=== PATIENT | male | born 1950 | race Caucasian/White ===

== ENCOUNTER 2017-09-07 09:33 | Emergency (ER) | payer MEDICARE ==
[2017-09-07 09:49] VITALS: BP 153/95
--- NOTE | 2017-09-07 10:08 | ER Document Report ---
ED Medical Screen (RME) - General Chief Complaint: Leg Pain Stated Complaint: RIGHT LEG PAIN Time Seen by Provider: 09/07/17 09:58 Mode of Arrival: Ambulatory Information source: Patient Notes: Patient is a 67 year old male with a history of DVT presents to the emergency department complaining of worsening right leg pain onset Thursday. Patient states the pain is exacerbated with pressure. Patient states he took a trip to [place] on Thursday and took necessary breaks to ambulate every 1hr30 mins. Patient states he was previously prescribed Xarelto but did not finish taking the medication. Limited exam performed due to clothing. No palpable cords or tenderness. Negative Renae's sign. NVID. I have greeted and performed a rapid initial assessment of this patient. A comprehensive ED assessment and evaluation of the patient, analysis of test results and completion of the medical decision making process will be conducted by additional ED providers. TRAVEL OUTSIDE OF THE [place] IN LAST 30 DAYS: No - Related Data Allergies/Adverse Reactions: No Known Allergies Allergy (Verified 09/07/17 09:38) Home Medications: Current Home Medications Ledipasvir/Sofosbuvir [Harvoni 90-400 mg Tablet] 1 tab PO DAILY 09/07/17 [ History] Past Medical History - Past Medical History Cardiac Medical History: Reports: Hx DVT Pulmonary Medical History: Reports: Hx COPD Physical Exam - Vital signs Vitals: Temp Pulse Resp BP Pulse Ox 98.1 F 96 18 153/95 H 94 09/07/17 09:49 09/07/17 09:49 09/07/17 09:49 09/07/17 09:49 09/07/17 09:49 Course - Vital Signs Vital signs: Temp Pulse Resp BP Pulse Ox 98.1 F 96 18 153/95 H 94 09/07/17 09:49 09/07/17 09:49 09/07/17 09:49 09/07/17 09:49 09/07/17 09:49
--- NOTE | 2017-09-07 10:29 | ER Document Report ---
ED Extremity Problem, Lower - General Mode of Arrival: Ambulatory Information source: Patient TRAVEL OUTSIDE OF THE [place] IN LAST 30 DAYS: No - General Chief Complaint: Leg Pain Stated Complaint: RIGHT LEG PAIN Time Seen by Provider: 09/07/17 09:58 Notes: Patient is a 67 year old male with a history of DVT presents to the emergency department complaining of worsening right leg pain onset Thursday. Patient states the pain is exacerbated with pressure but is not worsened with ambulation. Patient states he took a trip to [place] on Thursday and took necessary breaks to ambulate every 1hr30 mins. Patient states he was previously prescribed Xarelto but did not finish taking the medication. Patient states that he worked on an unusual piece of equipment but denies any injury. Patient also denies any chest pain, shortness of breath, fevers, swelling or redness. (SHEA MELGAR) - Related Data Allergies/Adverse Reactions: No Known Allergies Allergy (Verified 09/07/17 09:38) Home Medications: Current Home Medications Ledipasvir/Sofosbuvir [Harvoni 90-400 mg Tablet] 1 tab PO DAILY 09/07/17 [ History] Past Medical History - Social History Smoking Status: Current Every Day Smoker Cigarette use (# per day): Yes - greater than a pack a day Frequency of alcohol use: Occasional Drug Abuse: Marijuana Family History: Reviewed & Not Pertinent Patient has suicidal ideation: No Patient has homicidal ideation: No - Past Medical History Cardiac Medical History: Reports: Hx DVT Pulmonary Medical History: Reports: Hx COPD Review of Systems - Review of Systems Constitutional: No symptoms reported EENT: No symptoms reported Cardiovascular: No symptoms reported Respiratory: No symptoms reported Gastrointestinal: No symptoms reported Genitourinary: No symptoms reported Male Genitourinary: No symptoms reported Musculoskeletal: See HPI Skin: No symptoms reported Hematologic/Lymphatic: No symptoms reported Neurological/Psychological: No symptoms reported -: Yes All other systems reviewed and negative Physical Exam - Vital signs Vitals: Temp Pulse Resp BP Pulse Ox 98.1 F 96 18 153/95 H 94 09/07/17 09:49 09/07/17 09:49 09/07/17 09:49 09/07/17 09:49 09/07/17 09:49 - Notes Notes: GENERAL: Alert, interacts well. No acute distress. HEAD: Normocephalic, atraumatic. NECK: Full range of motion. Supple. Trachea midline. LUNGS: Coarse breath sounds bilaterally. EXTREMITIES: Moves all 4 extremities spontaneously. No edema, weak femoral pulse bilaterally. Capilarlly refill <2 seconds when sitting. Negative Holmans sign bilaterally. Weak doppler DP bilaterally, slightly better PT in the BLE. No cyanosis. No palpable cords or tenderness. NEUROLOGICAL: Alert and oriented x3. Normal speech. Normal motor and sensation. PSYCH: Normal affect, normal mood. SKIN: Warm, dry, normal turgor. No rashes or lesions noted. No BLE coolness or cyanosis. (SHEA MELGAR) Course - Re-evaluation Re-evalutation: 09/07/17 11:11 Ultrasound showed a DVT in the right popliteal vein. This appears to be his second known DVT. Patient still refuses any anticoagulants other than aspirin. He will take an adult aspirin daily. We will give him one prior to discharge. He understands the risk of thromboembolic disorders and pulmonary embolism which he can include permanent disability or . I did recommend to him and repeat ultrasound to see if there is further propagation in 1 week or to return if he develops signs or symptoms of pulmonary embolism. He voices understanding. Further, I instructed him he should get follow-up with his PCP to determine underlying cause of this. He voices this as well including common causes to include malignancy, hypercoagulable states. (ALLISON KRISHNAN) - Vital Signs Vital signs: Temp Pulse Resp BP Pulse Ox 98.1 F 96 18 153/95 H 94 09/07/17 09:49 09/07/17 09:49 09/07/17 09:49 09/07/17 09:49 09/07/17 09:49 Discharge - Discharge Clinical Impression: Deep vein thrombosis (DVT) Condition: Good Disposition: HOME, SELF-CARE Additional Instructions: You have a confirmed deep venous thrombosis of the right popliteal vein. Since she refused anticoagulation, understand there is significant risk including pulmonary embolism which can lead to permanent disability, , chronic right leg problems. I would recommend you return in a week or have your primary care physician evaluate you for further hypercoagulable states, causes of DVT since this is recurrent. I recommend smoking cessation as well as repeat ultrasound in approximately 1 week to see if this is continuing to propagate/worsen. Please return if you change your mind about further blood thinners. We would usually consider something such as Eliquis for such an illness. Take an adult aspirin 325 mg daily. As her pulses appear weak and have poor circulation, I again would consider having your primary care physician evaluate you further for both coronary artery disease and peripheral artery disease. Forms: Smoking Cessation Education Scribe Attestation: 09/07/17 11:15 I personally performed the services provided in the documentation, reviewed and edited the documentation which was dictated to the scribe in my presence. It accurately records my words and actions. JESUS (ALLISON KRISHNAN) Duran[employer] Documentation - Scribe Written by Carolyn:: Carolyn Flores, 09/07/2017 10:29 acting as scribe for :: Ryan
[2017-09-07] MEDS ORDERED: ASPIRIN 325 MG TABLET PO ONE (11:16)
[2017-09-07] MEDS ORDERED: ASPIRIN 81 MG TABLET, CHEWABLE ONE (11:27)
--- NOTE | 2017-09-07 12:23 | XCELERA REPORT ---
[address] [address] Lower Extremity Venous Evaluation Name: ELO SHEIKH Age: 67 yrs Gender: Male : 1950 Patient Status: Preadmit Patient Location: ER Study Date: 09/07/2017 10:40 AM Procedure: Color flow and duplex imaging of the veins of the right lower extremity as well as the left Common Femoral vein. Reason For Study: RLE Calf pain, Hx of LLE DVT Ordering Physician: ALLISON KRISHNAN Performed By: Lia Castañeda Right Sided Venous Evaluation Abnormal vessel filling , no compression or Colour flow in the Popliteal vein. Left Sided Venous Evaluation The left common femoral vein is fully compressible. Spontaneous and phasic flow is present in the left common femoral vein. Interpretation Summary Positive for DVT in the Right Popliteal vein. : ALLISON KRISHNAN [place]
== END 2017-09-07 11:32 | disposition home or self-care (01) ==
LOC: ER 09:33
DX: I82.431 Acute embolism and thrombosis of right popliteal vein (principal); M79.604 Pain in right leg; F17.210 Nicotine dependence, cigarettes, uncomplicated; J44.9 Chronic obstructive pulmonary disease, unspecified; Z86.718 Personal history of other venous thrombosis and embolism
CPT/HCPCS: 99283; 93971 ×2; A9270

== ENCOUNTER 2019-07-22 10:05 | Observation (INO) | payer MEDICARE ==
[2019-07-22] MEDS ORDERED: ASPIRIN 81 MG TABLET, CHEWABLE PO ONE (10:10)
[2019-07-22] MEDS ORDERED: DILTIAZEM HCL INJ 25 MG/5 ML VIAL IV ONE (10:25)
[2019-07-22] MEDS ORDERED: DILTIAZEM HCL/D5W 125 MG/125 ML RTUINJ IV PRN (10:25)
[2019-07-22 10:28] LABS: ABSOLUTE BASOPHILS # (AUTO) 0.1 10^3/uL (0.0-0.2); ABSOLUTE LYMPHOCYTES (AUTO) 1.1 10^3/uL (0.5-4.7); ABSOLUTE MONOCYTES (AUTO) 1.2 10^3/uL (0.1-1.4); ABSOLUTE NEUT (AUTO) 10.3 10^3/uL (1.7-8.2); BASOPHILS % (AUTO) 0.6 % (0-2); EOSINOPHILS % (AUTO) 0.1 % (0-6); HEMOGLOBIN 16.4 g/dL (13.5-17.0); LYMPHOCYTES % (AUTO) 8.6 % (13-45); MEAN CORPUSCULAR HEMOGLOBIN 35.7 pg (27.0-33.4); MEAN CORPUSCULAR HGB CONC 34.8 g/dL (32.0-36.0); MEAN CORPUSCULAR VOLUME 102 fl (80-97); MONOCYTES % (AUTO) 9.1 % (3-13); PLATELET COUNT 149 10^3/uL (150-450); RED BLOOD COUNT 4.59 10^6/uL (4.35-5.55); RED CELL DISTRIBUTION WIDTH 13.1 % (11.5-14.0); SEGMENTED NEUTROPHILS % (AUTO) 81.6 % (42-78); TOTAL CELLS COUNTED % (AUTO) 100 %; WHITE BLOOD COUNT 12.7 10^3/uL (4.0-10.5)
--- NOTE | 2019-07-22 10:28 | ER Document Report ---
ED General - General Chief Complaint: Chest Pain Stated Complaint: CHEST PAIN Time Seen by Provider: 07/22/19 10:24 TRAVEL OUTSIDE OF THE [place] IN LAST 30 DAYS: No - HPI Notes: Patient is a 69-year-old male who presents emergency department for evaluation of chest pain. He states he had some the other evening. It felt like an elephant sitting on his chest. He called EMS, but the pain went away prior to their arrival. He was checked out, deemed stable to stay at home. He states he started having pain again at about 130 this morning. It is substernal, crushing type pain. He rated it a 5 out of 5. He felt dizzy and very nauseated. He could feel his heart racing. He called EMS, was found to be in SVT. Patient was administered Identicard x2, was found to be in rapid atrial fibrillation. H e was then administered 10 mill grams of Cardizem and was sinus mechanism for some time. He presents here to the emergency department for evaluation and is currently in rapid atrial fibrillation. He currently puts his pain at a 1 out of 10. He states is just a slight pressure. - Related Data Allergies/Adverse Reactions: No Known Allergies Allergy (Verified 09/07/17 09:38) Home Medications: LISINOPRIL/HCTZ -unsure of dose, states he only takes it "as needed" Past Medical History - General Information source: Patient - Social History Smoking Status: Current Every Day Smoker Frequency of alcohol use: Heavy Drug Abuse: None Family History: Reviewed & Not Pertinent Patient has suicidal ideation: No Patient has homicidal ideation: No - Past Medical History Cardiac Medical History: Reports: Hx DVT, Hx Hypertension Pulmonary Medical History: Reports: Hx COPD Renal/ Medical History: Denies: Hx Peritoneal Dialysis Review of Systems - Review of Systems Constitutional: No symptoms reported EENT: No symptoms reported Cardiovascular: See HPI Respiratory: No symptoms reported Gastrointestinal: No symptoms reported Genitourinary: No symptoms reported Musculoskeletal: No symptoms reported Skin: No symptoms reported Neurological/Psychological: No symptoms reported Physical Exam - Vital signs Vitals: Pulse Ox 98 07/22/19 10:08 - Notes Notes: Vital signs reviewed, please refer to chart. Head is normocephalic, atraumatic. Pupils equal round, reactive to light. Neck is supple without meningismus. Heart is tachycardic and irregularly irregular. Lungs are clear to auscultation bilaterally. Abdomen is soft, nontender, normoactive bowel sounds throughout. Extremities without cyanosis, clubbing. Posterior calves are nontender. Peripheral pulses are equal. Skin is warm and dry. Patient is awake, alert, neurological exam is nonfocal. Course - Re-evaluation Re-evalutation: 07/22/19 10:29 Patient presents to the emergency department for evaluation. Upon arrival he was found to be initially in SVT. I went to see the patient personally 3 minutes later, he was found to be in rapid atrial fibrillation. His pressure is stable. I believe his chest pain is likely secondary to rate related ischemia. He was already given aspirin. Administered Cardizem 20 mg IV, IV fluids continue. We will place him on a drip, titrate to effect. We will continue to monitor. 07/22/19 14:35 Patient remained stable in atrial flutter throughout the course of the remainder of his stay in the ED here. He denies any chest pain at this time. He is feeling improved. CT angiogram was performed, no pulmonary embolus or other acute finding was identified. Patient was given Lovenox because of his atrial fibrillation. He Shmuel had been prescribed Eliquis in the past, with which he is being noncompliant. I spoke with Dr. Escobar, then Liang Horn, KELVIN, who will admit the patient for further care. - Vital Signs Vital signs: Temp Pulse Resp BP Pulse Ox 98.5 F 159 H 16 107/72 95 07/22/19 10:19 07/22/19 10:19 07/22/19 11:55 07/22/19 11:55 07/22/19 11:55 - Laboratory Result Diagrams: 07/22/19 10:10 07/22/19 10:10 Laboratory results interpreted by me: 07/22/19 07/22/19 10:10 10:10 WBC 12.7 H MCV 102 H MCH 35.7 H Plt Count 149 L Lymph % (Auto) 8.6 L Absolute Neuts (auto) 10.3 H Seg Neutrophils % 81.6 H Sodium 129.1 L Chloride 96 L Calcium 10.9 H Total Bilirubin 1.5 H Creatine Kinase 41 L - Diagnostic Test Radiology reviewed: Reports reviewed Radiology results interpreted by me: 07/22/19 14:38 Chest/Abdomen CTA 07/22/19 12:27 IMPRESSION: 1. Negative examination for pulmonary embolism. 2. Emphysema and bronchial wall thickening. 3. Small pericardial effusion. - EKG Interpretation by Me Additional EKG results interpreted by me: 07/22/19 14:41 Initial EKG revealed a supraventricular tachycardia with a rate of 160 bpm. Normal axis. Nonspecific ST changes, no acute changes concerning for ischemia or infarction. Repeat EKG performed under 10 minutes later showed atrial fibrillation with a rate of [address] changes. He had another EKG which showed SVT as well. Discharge - Discharge Clinical Impression: Rapid atrial fibrillation Condition: Stable Disposition: ADMITTED INPATIENT Admitting Provider: Luz (Hospitalist) - Henrique Horn NP Unit Admitted: [facility]
[2019-07-22 10:52] LABS: ALBUMIN 3.6 g/dL (3.5-5.0); ALKALINE PHOSPHATASE 79 U/L (38-126); ANION GAP 8 (5-19); ASPARTATE AMINO TRANSFERASE 30 U/L (17-59); BILIRUBIN,DIRECT 0.4 mg/dL (0.0-0.4); BILIRUBIN,TOTAL 1.5 mg/dL (0.2-1.3); BLOOD UREA NITROGEN 12 mg/dL (7-20); CALCIUM 10.9 mg/dL (8.4-10.2); CARBON DIOXIDE 25 mmol/L (22-30); CHLORIDE 96 mmol/L (98-107); CREATINE KINASE 41 U/L (55-170); GLUCOSE 83 mg/dL (75-110); POTASSIUM 4.8 mmol/L (3.6-5.0)
[2019-07-22 11:16] LABS: CREATINE KINASE MB 0.74 ng/mL (<4.55)
[2019-07-22 11:17] LABS: TROPONIN I < 0.012 ng/mL
[2019-07-22 12:47] LABS: INTERNATIONAL RATION (INR) 1.19; PROTHROMBIN TIME 15.2 SEC (11.4-15.4)
[2019-07-22 12:48] LABS: PARTIAL THROMBOPLASTIN TIME 28.6 SEC (23.5-35.8)
[2019-07-22] MEDS ORDERED: ENOXAPARIN SODIUM INJ 80 MG/0.8 ML DISP.SYRIN SUBCUT ONE (13:34)
--- NOTE | 2019-07-22 14:11 | RADIOLOGY REPORT (SQ) ---
EXAM DESCRIPTION: CTA CHEST COMPLETED DATE/TIME: 07/22/2019 1:55 pm REASON FOR STUDY: eval for PE COMPARISON: 12/09/2010 TECHNIQUE: CT scan of the chest performed using helical scanning technique with dynamic intravenous contrast injection. Images reviewed with lung, soft tissue and bone windows. Reconstructed coronal and sagittal MPR images reviewed. Additional 3 dimensional post-processing performed to develop Maximal Intensity Projection images (ND P). All images stored on PACS. All CT scanners at this facility use dose modulation, iterative reconstruction, and/or weight based d osing when appropriate to reduce radiation dose to as low as reasonably achievable (ALARA). [facility]: Dose Right [facility]: CareDose [facility]: Dose Right [facility]: Teradose 4D [facility]: Smart TweetPhoto CONTRAST TYPE AND DOSE: 53 mL Omnipaque 350 Contrast bolus optimized for the pulmonary arteries. Not diagnostic for the aorta. RENAL FUNCTION: GFR > 60. RADIATION DOSE: 572 mGy cm LIMITATIONS: None. FINDINGS: LUNGS AND PLEURA: Mild centrilobular emphysema. Diffuse bilateral bronchial wall thickeni ng. No masses, infiltrates, or pneumothorax. No pleural effusions or pleural calcifications. AORTA AND GREAT VESSELS: No aneurysm. Contrast bolus not optimized for the aorta. HEART: Small pericardial effusion. Left coronary artery calcifications. PULMONARY ARTERIES: No emboli visualized in the main pulmonary arteries or the segmental branches. HILAR AND MEDIASTINAL STRUCTURES: No identified masses or abnormal nodes. HARDWARE: None in the chest. UPPER ABDOMEN: No significant findings. Limited exam. THYROID AND OTHER SOFT TISSUES: No masses. No adenopathy. BONES: No acute or significant finding. 3D MIPS: Confirm above findings. OTHER: No other significant finding. IMPRESSION: 1. Negative examination for pulmonary embolism. 2. Emphysema and bronchial wall thickening. 3. Small pericardial effusion. COMMENT: Quality ID # [id number]: Final reports with documentation of one or more dose reduction techniques (e.g., Automated exposure control, adjustment of the mA and/or kV according to patient size, use of iterative reconstruction technique) TECHNICAL DOCUMENTATION: JOB ID: [id number] [employer]- All Rights Reserved Reading location - IP/workstation name: [email or web address]
[2019-07-22] MEDS ORDERED: OXYCODONE-ACETAMINOPHEN 5-325 MG TABLET PO PRN (14:56)
[2019-07-22] MEDS ORDERED: ZOLPIDEM TARTRATE 5 MG TABLET PO PRN (14:56)
[2019-07-22] MEDS ORDERED: ONDANSETRON HCL INJ/PF 4 MG/2 ML SDV IV PRN (14:56)
[2019-07-22] MEDS ORDERED: ACETAMINOPHEN 325 MG TABLET PO PRN (14:56)
[2019-07-22 15:04] LABS: APPEARANCE,URINE CLEAR; BILIRUBIN,URINE NEGATIVE (NEGATIVE); COLOR,URINE YELLOW; GLUCOSE, URINE NEGATIVE (NEGATIVE); KETONES,URINE TRACE mg/dL (NEGATIVE); LEUKOCYTE ESTERASE,URINE NEGATIVE (NEGATIVE); NITRITE,URINE NEGATIVE (NEGATIVE); PROTEIN,URINE NEGATIVE (NEGATIVE); URINE SPECIFIC GRAVITY 1.027; UROBILINOGEN,URINE NEGATIVE mg/dL (<2.0)
--- NOTE | 2019-07-22 15:11 | PDOC H&P ---
History of Present Illness Admission Date/PCP: 07/22/2019 No primary care Patient complains of: Palpitations History of Present Illness: ELO SHEIKH is a 69 year old male Past Medical History Cardiac Medical History: Reports: DVT, Hypertension Pulmonary Medical History: Reports: Chronic Obstructive Pulmonary Disease (COPD) Past Surgical History Past Surgical History: Reports: None Social History Information Source: Patient Lives with: Alone Smoking Status: Current Every Day Smoker Cigarettes Packs Per Day: 40 Frequency of Alcohol Use: Occasional Hx Recreational Drug Use: No Drugs: None Hx Prescription Drug Abuse: No - Advance Directive Resuscitation Status: Full Code Family History Family History: DM Parental Family History Reviewed: Yes Children Family History Reviewed: Yes Sibling(s) Family History Reviewed.: Yes Medication/Allergy Home Medications: Ledipasvir/Sofosbuvir [Harvoni 90-400 mg Tablet] 1 tab PO DAILY 09/07/17 Allergies/Adverse Reactions: No Known Allergies Allergy (Verified 09/07/17 09:38) Review of Systems Constitutional: ABSENT: chills, fever(s), headache(s), weight gain, weight loss Eyes: ABSENT: visual disturbances Ears: ABSENT: hearing changes Cardiovascular: PRESENT: palpitations. ABSENT: chest pain, dyspnea on exertion, edema, orthropnea Respiratory: ABSENT: cough, hemoptysis Gastrointestinal: ABSENT: abdominal pain, constipation, diarrhea, hematemesis, hematochezia, nausea, vomiting Genitourinary: ABSENT: dysuria, hematuria Musculoskeletal: ABSENT: joint swelling Integumentary: ABSENT: rash, wounds Neurological: ABSENT: abnormal gait, abnormal speech, confusion, dizziness, focal weakness, syncope Psychiatric: ABSENT: anxiety, depression, homidical ideation, suicidal ideation Endocrine: ABSENT: cold intolerance, heat intolerance, polydipsia, polyuria Hematologic/Lymphatic: ABSENT: easy bleeding, easy bruising Physical Exam Vital Signs: Temp Pulse Resp BP Pulse Ox 98.5 F 159 H 16 107/72 95 07/22/19 10:19 07/22/19 10:19 07/22/19 11:55 07/22/19 11:55 07/22/19 11:55 Intake & Output 07/21/19 07/22/19 07/23/19 06:59 06:59 06:59 Intake Total 13 Balance 13 Weight 67.9 kg General appearance: PRESENT: no acute distress, well-developed, well-nourished Head exam: PRESENT: atraumatic, normocephalic Eye exam: PRESENT: conjunctiva pink, EOMI, PERRLA. ABSENT: scleral icterus Ear exam: PRESENT: normal external ear exam Mouth exam: PRESENT: moist, tongue midline Neck exam: ABSENT: carotid bruit, JVD, lymphadenopathy, thyromegaly Respiratory exam: PRESENT: clear to auscultation parminder. ABSENT: rales, rhonchi, wheezes Cardiovascular exam: PRESENT: RRR. ABSENT: diastolic murmur, rubs, systolic murmur Pulses: PRESENT: normal dorsalis pedis pul Vascular exam: PRESENT: normal capillary refill GI/Abdominal exam: PRESENT: normal bowel sounds, soft. ABSENT: distended, guarding, mass, organolmegaly, rebound, tenderness Rectal exam: PRESENT: deferred Extremities exam: PRESENT: full ROM. ABSENT: calf tenderness, clubbing, pedal edema Neurological exam: PRESENT: alert, awake, oriented to person, oriented to place, oriented to time, oriented to situation, CN II-XII grossly intact. ABSENT: motor sensory deficit Psychiatric exam: PRESENT: appropriate affect, normal mood. ABSENT: homicidal ideation, suicidal ideation Skin exam: PRESENT: dry, intact, warm. ABSENT: cyanosis, rash Results Laboratory Results: 07/22/19 10:10 07/22/19 10:10 07/22/19 07/22/19 07/22/19 10:10 10:10 10:10 WBC 12.7 H RBC 4.59 Hgb 16.4 Hct 47.0 MCV 102 H MCH 35.7 H MCHC 34.8 RDW 13.1 Plt Count 149 L Seg Neutrophils % 81.6 H Sodium 129.1 L Potassium 4.8 Chloride 96 L Carbon Dioxide 25 Anion Gap 8 BUN 12 Creatinine 0.91 Est GFR ( Amer) > 60 Glucose 83 Calcium 10.9 H Total Bilirubin 1.5 H AST 30 Alkaline Phosphatase 79 Total Protein 7.0 Albumin 3.6 TSH 1.83 07/22/19 07/22/19 10:10 10:10 Creatine Kinase 41 L CK-MB (CK-2) 0.74 Troponin I < 0.012 Impressions: Chest/Abdomen CTA 07/22/19 12:27 IMPRESSION: 1. Negative examination for pulmonary embolism. 2. Emphysema and bronchial wall thickening. 3. Small pericardial effusion. Assessment and Plan - Diagnosis (1) Rapid atrial fibrillation Is this a current diagnosis for this admission?: Yes Plan: 07/22/2019-rate controlled at this time. Atrial flutter in the 90s. I will transition patient to p.o. Cardizem 30 mg p.o. every 6. Place patient on Eliquis for anticoagulation. Continue to follow make change plan of care as ap propriate (2) Hyponatremia Is this a current diagnosis for this admission?: Yes Plan: -mild. Sodium is 129.1. Normal saline at 125 mL an hour. I suspect is secondary to alcohol abuse. (3) Hypercalcemia Is this a current diagnosis for this admission?: Yes Plan: 07/22/2019-mild most likely concentration related. Will hydrate with normal saline 125 mL an hour repeat calcium in the morning. (4) Leukocytosis Is this a current diagnosis for this admission?: Yes Plan: 07/22/2019-etiology unknown most likely reactional in nature we will continue to follow - Time Time Spent with patient: 35 or more minutes
[2019-07-22] MEDS ORDERED: DILTIAZEM HCL 30 MG TABLET PO ONE (15:30)
[2019-07-22] MEDS ORDERED: DILTIAZEM HCL 30 MG TABLET PO SCH (18:00)
[2019-07-22] MEDS: NORMAL SALINE 1000 ML 1,000 ML IV PRN (18:30)
[2019-07-22] MEDS: APIXABAN 5 MG TABLET PO SCH (18:30)
--- NOTE | 2019-07-22 19:10 | EKG REPORT ---
SEVERITY:- ABNORMAL ECG - ATRIAL FIBRILLATION, V-RATE 96-158 LOW VOLTAGE IN FRONTAL LEADS BORDERLINE R WAVE PROGRESSION, ANTERIOR LEADS : Confirmed by: Carrol Medina MD 22-Jul-2019 19:09:57
--- NOTE | 2019-07-22 19:10 | EKG REPORT ---
SEVERITY:- ABNORMAL ECG - ATRIAL FIBRILLATION, V-RATE 100-165 LOW VOLTAGE IN FRONTAL LEADS BORDERLINE R WAVE PROGRESSION, ANTERIOR LEADS BORDERLINE T ABNORMALITIES, ANT-LAT LEADS : Confirmed by: Carrol Medina MD 22-Jul-2019 19:10:13
--- NOTE | 2019-07-22 19:10 | EKG REPORT ---
SEVERITY:- ABNORMAL ECG - SUPRAVENTRICULAR TACHYCARDIA :MOST LIKELY ATRIAL FLUTTER RIGHT AXIS DEVIATION LOW VOLTAGE IN FRONTAL LEADS : Confirmed by: Carrol Medina MD 22-Jul-2019 19:09:42
--- NOTE | 2019-07-22 19:12 | EKG REPORT ---
SEVERITY:- ABNORMAL ECG - SUPRAVENTRICULAR TACHYCARDIA : MOST LIKELY ATRIALFLUTTER WITH RVR BORDERLINE RIGHT AXIS DEVIATION LOW VOLTAGE IN FRONTAL LEADS BORDERLINE R WAVE PROGRESSION, ANTERIOR LEADS : Confirmed by: Carrol Medina MD 22-Jul-2019 19:10:48
[2019-07-23] MEDS: DILTIAZEM HCL 30 MG TABLET PO SCH ×2 (00:17→05:15)
[2019-07-23 03:10] LABS: HEMATOCRIT 41.1 % (37.9-51.0); HEMOGLOBIN 14.4 g/dL (13.5-17.0); MEAN CORPUSCULAR HEMOGLOBIN 35.5 pg (27.0-33.4); MEAN CORPUSCULAR HGB CONC 35.1 g/dL (32.0-36.0); MEAN CORPUSCULAR VOLUME 101 fl (80-97); PLATELET COUNT 145 10^3/uL (150-450); RED BLOOD COUNT 4.06 10^6/uL (4.35-5.55); WHITE BLOOD COUNT 8.4 10^3/uL (4.0-10.5)
[2019-07-23 03:32] LABS: ANION GAP 7 (5-19); BLOOD UREA NITROGEN 15 mg/dL (7-20); CALCIUM 8.4 mg/dL (8.4-10.2); CARBON DIOXIDE 20 mmol/L (22-30); CHLORIDE 103 mmol/L (98-107); GLUCOSE 89 mg/dL (75-110); PHOSPHORUS 3.1 mg/dL (2.5-4.5); POTASSIUM 4.2 mmol/L (3.6-5.0)
[2019-07-23] MEDS: NORMAL SALINE 1000 ML 1,000 ML IV PRN (05:16)
[2019-07-23] MEDS ORDERED: GUAIFENESIN SYRP 200 MG/10 ML UDC PO PRN (06:56)
[2019-07-23] MEDS ORDERED: NICOTINE 14 MG/24 HR PATCH.TD24 TD ONE (07:00)
[2019-07-23 07:35] VITALS: BP 133/75
--- NOTE | 2019-07-23 09:47 | PDOC DISCHARGE SUMMARY ---
Impression - Admit/DC Date/PCP Admission Date/Primary Care Provider: 07/22/19 15:05 Discharge Date: 07/23/19 - Discharge Diagnosis (1) Rapid atrial fibrillation Is this a current diagnosis for this admission?: Yes (2) Hyponatremia Is this a current diagnosis for this admission?: Yes (3) Hypercalcemia Is this a current diagnosis for this admission?: Yes (4) Leukocytosis Is this a current diagnosis for this admission?: Yes - Additional Information Resuscitation Status: Full Code Discharge Diet: As Tolerated Discharge Activity: Activity As Tolerated Prescriptions: Diltiazem HCl [Cardizem Cd 120 mg Capsule] 120 mg PO DAILY #30 cap.sr.24h Home Medications: Lisinopril/Hydrochlorothiazide [Lisinopril-Hctz 20-25 mg Tab] 0.5 each PO DAILY 07/22/19 Diltiazem HCl [Cardizem Cd 120 mg Capsule] 120 mg PO DAILY #30 cap.sr.24h 07/23/19 History of Present Illiness History of Present Illness: ELO SHEIKH is a 69 year old male who presented to the ER with new onset SVT versus atrial fibrillation with RVR was treated in the field and placed on a Cardizem drip showing an atrial flutter at the time. Hospital Course Hospital Course: Patient admitted to [facility] on Cardizem p.o. after having received Cardizem IV in the ER. Patient converted to a atrial flutter rate controlled. This morning patient is in a normal sinus rhythm in the 80s. I will send patient home continue on Cardizem CD 100 mg p.o. daily patient will follow with primary care this week. Patient's hypercalcemia has resolved his hyponatremia has improved and leukocytosis has resolved secondary to IV fluids. Patient is agrees with plan of care. Patient return to ER with any further bouts of palpitations. Physical Exam Vital Signs: Temp Pulse Resp BP Pulse Ox 98.6 F 81 16 133/75 H 95 07/23/19 07:20 07/23/19 07:20 07/23/19 07:20 07/23/19 07:20 07/23/19 07:20 Intake & Output 07/22/19 07/23/19 07/24/19 06:59 06:59 06:59 Intake Total 1047 Balance 1047 Weight 63.3 kg General appearance: PRESENT: no acute distress, well-developed, well-nourished Head exam: PRESENT: atraumatic, normocephalic Eye exam: PRESENT: conjunctiva pink, EOMI, PERRLA. ABSENT: scleral icterus Ear exam: PRESENT: normal external ear exam Mouth exam: PRESENT: moist, tongue midline Neck exam: ABSENT: carotid bruit, JVD, lymphadenopathy, thyromegaly Respiratory exam: PRESENT: clear to auscultation parminder. ABSENT: rales, rhonchi, wheezes Cardiovascular exam: PRESENT: RRR. ABSENT: diastolic murmur, rubs, systolic murmur Pulses: PRESENT: normal dorsalis pedis pul Vascular exam: PRESENT: normal capillary refill GI/Abdominal exam: PRESENT: normal bowel sounds, soft. ABSENT: distended, guarding, mass, organolmegaly, rebound, tenderness Rectal exam: PRESENT: deferred Extremities exam: PRESENT: full ROM. ABSENT: calf tenderness, clubbing, pedal edema Neurological exam: PRESENT: alert, awake, oriented to person, oriented to place, oriented to time, oriented to situation, CN II-XII grossly intact. ABSENT: motor sensory deficit Psychiatric exam: PRESENT: appropriate affect, normal mood. ABSENT: homicidal ideation, suicidal ideation Skin exam: PRESENT: dry, intact, warm. ABSENT: cyanosis, rash Results Laboratory Results: WBC 8.4 10^3/uL (4.0-10.5) 07/23/19 03:04 RBC 4.06 10^6/uL (4.35-5.55) L 07/23/19 03:04 Hgb 14.4 g/dL (13.5-17.0) 07/23/19 03:04 Hct 41.1 % (37.9-51.0) 07/23/19 03:04 MCV 101 fl (80-97) H 07/23/19 03:04 MCH 35.5 pg (27.0-33.4) H 07/23/19 03:04 MCHC 35.1 g/dL (32.0-36.0) 07/23/19 03:04 RDW 13.0 % (11.5-14.0) 07/23/19 03:04 Plt Count 145 10^3/uL (150-450) L 07/23/19 03:04 Lymph % (Auto) 8.6 % (13-45) L 07/22/19 10:10 Boyle % (Auto) 9.1 % (3-13) 07/22/19 10:10 Eos % (Auto) 0.1 % (0-6) 07/22/19 10:10 Baso % (Auto) 0.6 % (0-2) 07/22/19 10:10 Absolute Neuts (auto) 10.3 10^3/uL (1.7-8.2) H 07/22/19 10:10 Absolute Lymphs (auto) 1.1 10^3/uL (0.5-4.7) 07/22/19 10:10 Absolute Monos (auto) 1.2 10^3/uL (0.1-1.4) 07/22/19 10:10 Absolute Eos (auto) 0.0 10^3/uL (0.0-0.6) 07/22/19 10:10 Absolute Basos (auto) 0.1 10^3/uL (0.0-0.2) 07/22/19 10:10 Seg Neutrophils % 81.6 % (42-78) H 07/22/19 10:10 PT 15.2 SEC (11.4-15.4) 07/22/19 10:10 INR 1.19 07/22/19 10:10 APTT 28.6 SEC (23.5-35.8) 07/22/19 10:10 Sodium 129.8 mmol/L (137-145) L 07/23/19 03:04 Potassium 4.2 mmol/L (3.6-5.0) 07/23/19 03:04 Chloride 103 mmol/L (98-107) 07/23/19 03:04 Carbon Dioxide 20 mmol/L (22-30) L 07/23/19 03:04 Anion Gap 7 (5-19) 07/23/19 03:04 BUN 15 mg/dL (7-20) 07/23/19 03:04 Creatinine 0.74 mg/dL (0.52-1.25) 07/23/19 03:04 Est GFR ( Amer) > 60 (>60) 07/23/19 03:04 Est GFR (MDRD) Non-Af > 60 (>60) 07/23/19 03:04 Glucose 89 mg/dL (75-110) 07/23/19 03:04 Calcium 8.4 mg/dL (8.4-10.2) 07/23/19 03:04 Phosphorus 3.1 mg/dL (2.5-4.5) 07/23/19 03:04 Magnesium 1.7 mg/dL (1.6-2.3) 07/23/19 03:04 Total Bilirubin 1.5 mg/dL (0.2-1.3) H 07/22/19 10:10 Direct Bilirubin 0.4 mg/dL (0.0-0.4) 07/22/19 10:10 Neonat Total Bilirubin Not Reportable 07/22/19 10:10 Neonat Direct Bilirubin Not Reportable 07/22/19 10:10 Neonat Indirect Bili Not Reportable 07/22/19 10:10 AST 30 U/L (17-59) 07/22/19 10:10 ALT 20 U/L (<50) 07/22/19 10:10 Alkaline Phosphatase 79 U/L (38-126) 07/22/19 10:10 Creatine Kinase 41 U/L (55-170) L 07/22/19 10:10 CK-MB (CK-2) 0.74 ng/mL (<4.55) 07/22/19 10:10 Troponin I 0.012 ng/mL 07/23/19 03:04 Total Protein 7.0 g/dL (6.3-8.2) 07/22/19 10:10 Albumin 3.6 g/dL (3.5-5.0) 07/22/19 10:10 TSH 1.83 uIU/mL (0.47-4.68) 07/22/19 10:10 Urine Color YELLOW 07/22/19 14:45 Urine Appearance CLEAR 07/22/19 14:45 Urine pH 6.0 (5.0-9.0) 07/22/19 14:45 Ur Specific [place] 1.027 07/22/19 14:45 Urine Protein NEGATIVE mg/dL (NEGATIVE) 07/22/19 14:45 Urine Glucose (UA) NEGATIVE mg/dL (NEGATIVE) 07/22/19 14:45 Urine Ketones TRACE mg/dL (NEGATIVE) H 07/22/19 14:45 Urine Blood SMALL (NEGATIVE) H 07/22/19 14:45 Urine Nitrite NEGATIVE (NEGATIVE) 07/22/19 14:45 Urine Bilirubin NEGATIVE (NEGATIVE) 07/22/19 14:45 Urine Urobilinogen NEGATIVE mg/dL (<2.0) 07/22/19 14:45 Ur Leukocyte Esterase NEGATIVE (NEGATIVE) 07/22/19 14:45 Urine WBC (Auto) 1 /HPF 07/22/19 14:45 Urine RBC (Auto) 1 /HPF 07/22/19 14:45 U Hyaline Cast (Auto) 1 /LPF 07/22/19 14:45 Urine Ascorbic Acid NEGATIVE (NEGATIVE) 07/22/19 14:45 Serum Alcohol < 10 mg/dL (NONE DETECTED) 07/22/19 10:10 07/22/19 07/22/19 07/22/19 10:10 14:51 20:55 CK-MB (CK-2) 0.74 Troponin I < 0.012 0.018 0.019 07/23/19 03:04 CK-MB (CK-2) Troponin I 0.012 Impressions: Chest/Abdomen CTA 07/22/19 12:27 IMPRESSION: 1. Negative examination for pulmonary embolism. 2. Emphysema and bronchial wall thickening. 3. Small pericardial effusion. Plan Time Spent: Greater than 30 Minutes Stroke Is this a Stroke Patient?: No Acute Heart Failure - Is this a Heart Failure Patient?: No
[2019-07-23] MEDS ORDERED: DILTIAZEM HCL 120 MG CAP.SR.24H PO SCH (10:00)
[2019-07-23] MEDS: APIXABAN 5 MG TABLET PO SCH (10:30)
[2019-07-24] MEDS ORDERED: NICOTINE 14 MG/24 HR PATCH.TD24 TD SCH (10:00)
== END 2019-07-23 11:16 | disposition home or self-care (01) ==
LOC: ER 10:05 → INTOOBSV 15:05 → EH 15:05 → 3W 16:45
PROVIDERS: ADMIT Internal Medicine; ATTEND Internal Medicine
DX: I48.91 Unspecified atrial fibrillation (principal); E87.1 Hypo-osmolality and hyponatremia; E83.52 Hypercalcemia; D72.829 Elevated white blood cell count, unspecified; I48.92 Unspecified atrial flutter; I47.1 Supraventricular tachycardia; I10 Essential (primary) hypertension; J43.9 Emphysema, unspecified; Z86.718 Personal history of other venous thrombosis and embolism; F17.210 Nicotine dependence, cigarettes, uncomplicated; Z60.2 Problems related to living alone; Z91.14 Patient's other noncompliance with medication regimen
CPT/HCPCS: 93005; 96376; 99285; 96365; 96366; 36415 ×2; 82553; 80307; 82550; 83735; 84100; 84443; 85025; 85027; 85610; 85730; 80048; 80053; 81001; 84484 ×2; 71275; 93010; G0378 ×3; A9270 ×6; J3490 ×3; J7030 ×2

== ENCOUNTER 2019-08-01 12:22 | Emergency (ER) | payer MEDICARE ==
--- NOTE | 2019-08-01 14:11 | ER Document Report ---
ED General - General Chief Complaint: Shortness Of Breath Stated Complaint: SHORTNESS OF BREATH Time Seen by Provider: 08/01/19 13:47 Notes: 69-year-old male with recent admission for A. fib with RVR presents to the emergency department via EMS for A. fib with RVR. Patient states that he was at home and felt his heart racing, became acutely short of breath, so he decided to call EMS. Patient states that he became lightheaded. In route patient received diltiazem 15 mg IV once after vasovagal maneuvers were insufficient. Upon arrival to the emergency department patient was in sinus rhythm and had converted. Patient currently states that he feels much better and does not have any symptoms from initial presentation. TRAVEL OUTSIDE OF THE [place] IN LAST 30 DAYS: No - Related Data Allergies/Adverse Reactions: No Known Allergies Allergy (Verified 09/07/17 09:38) Past Medical History - Social History Smoking Status: Current Every Day Smoker Frequency of alcohol use: Heavy Drug Abuse: None Family History: DM Patient has suicidal ideation: No Patient has homicidal ideation: No - Past Medical History Cardiac Medical History: Reports: Hx DVT, Hx Hypertension Pulmonary Medical History: Reports: Hx COPD Renal/ Medical History: Denies: Hx Peritoneal Dialysis Review of Systems - Review of Systems Constitutional: No symptoms reported EENT: No symptoms reported Cardiovascular: See HPI Respiratory: See HPI Gastrointestinal: No symptoms reported Genitourinary: No symptoms reported Male Genitourinary: No symptoms reported Musculoskeletal: No symptoms reported Skin: No symptoms reported Hematologic/Lymphatic: No symptoms reported Neurological/Psychological: No symptoms reported Physical Exam - Vital signs Vitals: Resp BP Pulse Ox 22 H 111/74 100 08/01/19 12:30 08/01/19 12:30 08/01/19 12:30 - Notes Notes: PHYSICAL EXAMINATION: Reviewed vital signs and charting by RN GENERAL: Alert, interacts well. No acute distress. HEAD: Normocephalic, atraumatic. EYES: Pupils equal and round. Extraocular movements intact. ENT: Oral mucosa moist, tongue midline. NECK: Full range of motion. Trachea midline. LUNGS: Clear to auscultation bilaterally, no wheezes, rales, or rhonchi. No respiratory distress. HEART: Regular rate and rhythm. No murmur ABDOMEN: soft, non-tender. No distention. Bowel sounds present EXTREMITIES: Moves all 4 extremities spontaneously. No edema, No cyanosis. PSYCH: Normal affect, normal mood. SKIN: Warm, dry, normal turgor. No rashes or lesions noted. Course - Re-evaluation Re-evalutation: 08/01/19 15:04 Patient is well-appearing in no acute distress. Still in sinus rhythm with a heart rate of 84, blood pressure 118/77, respiratory rate 22. Discussed with Dr. Marcel Silver, hospitalist who is going to admit to telemetry due to patient's risk for CVA as this is a second episode in less than 1 week and is not anticoagulated. He is admitted to telemetry for full admission. - Vital Signs Vital signs: Temp Pulse Resp BP Pulse Ox 21 H 102/72 98 08/01/19 13:01 08/01/19 13:00 08/01/19 13:01 - Laboratory Result Diagrams: 08/01/19 14:38 08/01/19 14:38 Laboratory results interpreted by me: 08/01/19 14:38 WBC 11.0 H RBC 3.84 L MCV 102 H MCH 36.1 H Lymph % (Auto) 8.8 L Absolute Neuts (auto) 9.0 H Seg Neutrophils % 81.6 H Discharge - Discharge Clinical Impression: Atrial fibrillation with RVR Condition: Stable Disposition: ADMITTED INPATIENT Admitting Provider: Sharon (Hospitalist) Unit Admitted: Telemetry
[2019-08-01 14:58] LABS: BASOPHILS % (AUTO) 0.4 % (0-2); EOSINOPHILS % (AUTO) 0.3 % (0-6); HEMATOCRIT 39.1 % (37.9-51.0); HEMOGLOBIN 13.8 g/dL (13.5-17.0); LYMPHOCYTES % (AUTO) 8.8 % (13-45); MEAN CORPUSCULAR HEMOGLOBIN 36.1 pg (27.0-33.4); MEAN CORPUSCULAR HGB CONC 35.4 g/dL (32.0-36.0); MEAN CORPUSCULAR VOLUME 102 fl (80-97); MONOCYTES % (AUTO) 8.9 % (3-13); PLATELET COUNT 274 10^3/uL (150-450); RED BLOOD COUNT 3.84 10^6/uL (4.35-5.55); RED CELL DISTRIBUTION WIDTH 12.8 % (11.5-14.0); SEGMENTED NEUTROPHILS % (AUTO) 81.6 % (42-78); TOTAL CELLS COUNTED % (AUTO) 100 %
--- NOTE | 2019-08-01 15:07 | RADIOLOGY REPORT (SQ) ---
EXAM DESCRIPTION: CHEST 2 VIEWS COMPLETED DATE/TIME: 08/01/2019 2:36 pm REASON FOR STUDY: SOB COMPARISON: 09/15/2014 EXAM PARAMETERS: NUMBER OF VIEWS: two views TECHNIQUE: Digital Frontal and Lateral radiographic views of the chest acquired. RADIATION DOSE: NA LIMITATIONS: none FINDINGS: LUNGS AND PLEURA: Mild hyperinflation. No opacities, masses or pneumothorax. No pleural e ffusion. MEDIASTINUM AND HILAR STRUCTURES: No masses or contour abnormalities. HEART AND VASCULAR STRUCTURES: Heart normal size. No evidence for failure. BONES: No acute findings. HARDWARE: None in the chest. OTHER: No other significant finding. IMPRESSION: NO ACUTE RADIOGRAPHIC FINDING IN THE CHEST. TECHNICAL DOCUMENTATION: JOB ID: [id number] [employer]- All Rights Reserved Reading location - IP/workstation name: [email or web address]
[2019-08-01 15:13] LABS: ALBUMIN 3.1 g/dL (3.5-5.0); ALKALINE PHOSPHATASE 85 U/L (38-126); ANION GAP 11 (5-19); ASPARTATE AMINO TRANSFERASE 27 U/L (17-59); BILIRUBIN,DIRECT 0.2 mg/dL (0.0-0.4); BILIRUBIN,TOTAL 0.7 mg/dL (0.2-1.3); BLOOD UREA NITROGEN 21 mg/dL (7-20); CALCIUM 8.6 mg/dL (8.4-10.2); CARBON DIOXIDE 20 mmol/L (22-30); CHLORIDE 96 mmol/L (98-107); GLUCOSE 102 mg/dL (75-110); POTASSIUM 4.2 mmol/L (3.6-5.0); TOTAL PROTEIN 6.4 g/dL (6.3-8.2)
[2019-08-01 16:23] VITALS: BP 124/80
--- NOTE | 2019-08-02 09:42 | EKG REPORT ---
SEVERITY:- OTHERWISE NORMAL ECG - SINUS RHYTHM LOW VOLTAGE IN FRONTAL LEADS : Confirmed by: Dariana Fowler 02-Aug-2019 09:41:28
== END 2019-08-01 16:28 | disposition left against medical advice (07) ==
LOC: ER 12:22
DX: I48.91 Unspecified atrial fibrillation (principal); R42 Dizziness and giddiness; J44.9 Chronic obstructive pulmonary disease, unspecified; I10 Essential (primary) hypertension; F17.200 Nicotine dependence, unspecified, uncomplicated; R06.02 Shortness of breath
CPT/HCPCS: 36415; 71046; 80053; 84484; 85025; 93005; 93010; 99285